=== PATIENT | male | born 1950 | race Caucasian/White ===

== ENCOUNTER → 2023-10-22 | Outpatient (CLI) | payer MEDICARE ==
--- NOTE | 2023-10-24 09:00 | PE ---
EXAMINATION TYPE: PET CT fusion skull to thigh DATE OF EXAM: 10/22/2023 CLINICAL INDICATION:Male, 73 years old with history of [id number] NEOPLASM OF PROSTATE; TECHNIQUE: Following the intravenous administration of 5.17 mCi of Ga-68 Illuccix (PSMA), whole bod y images are performed from the skull base to the midthigh. Images are reviewed on the computer in t he coronal, axial, and sagittal planes. Reconstructed rotating images are created on independent wor kstation and reviewed on the computer. A non-contrast CT is performed in conjunction with the PET s can. CT DLP: 458 mGycm, Automated exposure control for dose reduction was used. COMPARISON: CT None, PET/CT None, FINDINGS: Mediastinal SUV mean is 0.94. Hepatic parenchyma SUV mean is 2.69. SKULL BASE AND NECK: No suspicious radiotracer activity. CHEST, MEDIASTINUM, AND HILAR REGION: No suspicious radiotracer activity. ABDOMEN AND PELVIS: * Abnormal uptake within retroperitoneal lymph nodes largest a retroperitoneal lymph node series 3 i mage 162 measuring 16 mm in short axis max SUV 11.8. * Right external iliac lymph node max SUV 8.5 measuring 10 mm. MUSCULOSKELETAL STRUCTURES: Abnormal uptake within the T11 vertebral body max SUV 11.1 which correlates with subtly sclerotic are a on CT. OTHER CT: Atherosclerosis of the carotid bifurcations. Moderate to severe coronary artery atheroscle rosis. Right renal probable cyst. Mild hydroureter bilaterally. The prostate gland is surgically abse nt. There are severe atherosclerosis of the arterial vasculature. Quadrant ostomy present. Post surgi va changes of bowel measure given. IMPRESSION: Evidence of metastatic disease including right external iliac and retroperitoneal lymph nodes as well as T11 vertebral body metastatic lesion.
== END | disposition home or self-care (01) ==
LOC: RADPETMAIN 11:07
PROVIDERS: ATTEND Urology
DX: C79.51 Secondary malignant neoplasm of bone (principal); C61 Malignant neoplasm of prostate
CPT/HCPCS: 78815; A9596